=== PATIENT | female | born 1945 | race Caucasian/White ===

== ENCOUNTER 2023-04-26 08:34 | Inpatient (IN) | payer OTHER ==
[~2023-04-26] VITALS: Ht 160 cm; Wt 104.3 kg
[2023-04-26] MEDS ORDERED: METFORMIN HCL1000 M3 PO (08:58)
[2023-04-26] MEDS ORDERED: ATORVASTATIN CA40 MG PO (08:58)
[2023-04-26] MEDS ORDERED: LOSARTAN POTAS100 MG PO (08:59)
[2023-04-26] MEDS ORDERED: NORVASC2.5 MG PO (08:59)
[2023-04-26] MEDS ORDERED: FAMOTIDINE20 MG PO (08:59)
[2023-04-26] MEDS ORDERED: TRADJENTA5 MG PO (08:59)
[2023-04-29] MEDS ORDERED: CIPRO500 MG PO (15:43)
[2023-04-29] MEDS ORDERED: INTESTINEX680 M1 PO (15:44)
[2023-04-29] MEDS ORDERED: PEPCID AC20 MG PO (15:44)
[2023-04-29] MEDS ORDERED: METRONIDAZOLE500 MG PO (15:44)
== END 2023-04-29 17:01 | disposition home or self-care (01) | DRG 379 ==
LOC: ER 08:34 → SEC-K 16:18 → MEDJ 20:59
PROVIDERS: ADMIT Internal Medicine; ATTEND Internal Medicine
PROC: BW211ZZ Computerized Tomography (CT Scan) of Abdomen and Pelvis using Low Osmolar Contrast (ICD-10-PCS; principal; 2023-04-26)
DX: K57.33 Diverticulitis of large intestine without perforation or abscess with bleeding (principal); K59.09 Other constipation; D45 Polycythemia vera; E11.9 Type 2 diabetes mellitus without complications; I10 Essential (primary) hypertension; Z79.84 Long term (current) use of oral hypoglycemic drugs